=== PATIENT | female | born 1950 | race Caucasian/White ===

== ENCOUNTER 2023-12-25 18:15 | Emergency (ER) | payer OTHER, SELFPAY ==
[2023-12-25 18:18] VITALS: BP 152/66
--- NOTE | 2023-12-25 21:22 | ED.GENMED ---
History of Present Illness
General
Chief Complaint: DVT/Possible Blood Clot
Source: patient
Time Seen by Provider: 12/25/23 18:39
Travel History
Have you had any contact with someone who has COVID-19?: No
Do you have any symptoms of coronavirus? Fever > 100 degrees, chills, cough, shortness of breath, sore throat, loss of taste or smell, muscle aches, or headache?: No
History of Present Illness
History of Present Illness:
73-year-old female presenting to the emergency department for evaluation of some right calf discomfort that started earlier today, contacted her primary care provider who attempted to get the patient an outpatient ultrasound however this was unable
to be done for another month so primary care recommended patient come to the ER to have an ultrasound done. Patient was recently on a long plane ride. She otherwise has no history of DVT. She denies any color changes, numbness, motor dysfunction,
traumatic injuries or any other concerns.
Past History
Past History
ED Past Medical History: Arrthythmia (Atrial fibrillation), Asthma, GERD and Hypercholesterolemia (Diet-controlled)
ED Past Surgical History: Gynecological (Laparoscopy for treatment of endometriosis) and Other (Breast augmentation)
Social History
Tobacco: Non-smoker
Alcohol: None
Drug: None
Personal:
Living: with family
Employment: Employed
Family History
Family History: Negative CAD or Sudden
Review of Systems
Review of Systems
All Other Systems: ROS reviewed and negative except as documented in HPI and ROS
Phy Exam
Physical Exam
Physical Exam:
GENERAL: Alert , in no apparent distress
EYE: conjunctiva clear
Head: Normocephalic atraumatic
NECK: Supple,
ENT: mmm.
LUNGS: no acute respiratory distress
NEUROLOGICAL: Alert and oriented
SKIN: Warm and dry, skin intact.
MUSCULOSKELETAL: well perfused. Easily palpable pedal and tibial pulses bilaterally. Cap refill less than 2 seconds. Sensation grossly intact to light touch.
PSYCH: Normal and appropriate interaction.
Scores
Heart Failure Risk
Heart Failure Risk Score: Not Applicable
Heart Score for Chest Pain Patients
STEMI patient?: Not applicable
Withdrawal Assessment of Alcohol
Withdrawal Assessment Completed?: Not applicable
Course
Orders/Labs/Results
Orders:
Orders
12/25/23 18:21
US Periph Venous LOWER Ext RT Urgent
Comment:
Reason For Exam: right calf pain
Vital Signs
Initial and Last Documented VS:
Initial Vital Signs
Temp Pulse Resp BP Pulse Ox
98.2 F 56 20 152/66 99
12/25/23 18:18 12/25/23 18:18 12/25/23 18:18 12/25/23 18:18 12/25/23 18:18
Last Documented Vital Signs
Temp Pulse Resp BP Pulse Ox
98.2 F 61 20 118/60 98
12/25/23 18:18 12/25/23 21:40 12/25/23 18:18 12/25/23 21:40 12/25/23 19:18
MDM/Problems Addressed
Differential Diagnosis Includes:
Varicose vein, DVT, muscle strain
MDM/Problems Addressed:
73-year-old female presenting to the emergency department for evaluation at the request of primary care provider who was concerned for possible DVT. Patient's risk factor of recent prolonged travel. Ultrasound was ordered from triage and was
ultimately negative for DVT. Suspect strain or varicose vein as possible diagnosis. Compression and elevation recommended. Patient will follow-up with primary care provider
*Radiology
Radiology exam reviewed: radiology read reviewed
*Pulse Oximetry
Patient hypoxic: no
*Critical Care Note
Total Time (30-74mins, 75-104mins- exclusive of procedures): Not Applicable
ED Attending Note
-
Portions of this chart may have been created with voice recognition software.� Occasional wrong word or��sound alike� substitutions may have occurred due to the inherent limitations of voice recognition software.
Discharge Plan
Departure
Patient Disposition: Home (Routine Discharge)
Date of Disposition: 12/25/23
Time of Disposition: :22
Patient with high blood pressure during this ER visit?: Yes
Discharge Problem:
Pain in right lower leg
Instructions: Varicose Veins (DC)
Prescriptions:
No Action
Calcium Citrate Plus 1 EACH tablet
1 ea PO BID
fexofenadine [Shital] 180 mg Tablet
180 mg PO DAILY PRN (Reason: allergies)
multivitamin [Daily Multi-Vitamin] Tablet
1 tab PO DAILY
fluticasone propionate [Flovent HFA] 220 mcg/actuation Hfa Aerosol Inhaler
1 puff INHALATION BID
betaine HCl 300 mg Tablet
See Rx Instructions .ROUTE .COMPLEX
Rx Instructions:
650 mg orally takes with 3 meals a day.
quercetin 500 mg Capsule
500 mg PO DAILY
Boswellia
500 mg PO DAILY
CoQ-10
1 tab PO DAILY
Curcumin
1 dose PO DAILY
[place] 3 Fish Oil
1 tab PO DAILY
Patient Comments:
combo with flax seed 1,000 mg.
Vitamin B-1
1 tab PO DAILY
vitamin D3-vitamin K2
1 tab PO DAILY
Allovera
10 mg PO DAILY
ibuprofen 600 MG tablet
400 mg PO BID PRN (Reason: moderate pain)
Referrals:
Philly Orellana DO [Family Provider] -
Interventions
Interventions:
*Risk Screen - Suicide Last Done: 12/25/23 18:18
*General Assessment Last Done: 12/25/23 18:18
*Neglect/Abuse Screening Last Done: 12/25/23 18:18
*Nursing Disposition Last Done: 12/25/23 21:40
ED- Cardiac Assessment Last Done: 12/25/23 19:18
ED- Pulmonary Assessment Last Done: 12/25/23 19:18
ED-Skin Assessment Last Done: 12/25/23 19:18
Discharge Date and Time
Discharge Date/Time: 12/25/23 21:41
Print Language: ICELANDIC
[2023-12-25 21:40] VITALS: BP 118/60
== END 2023-12-25 21:41 | disposition home or self-care (01) ==
LOC: EMR 18:15
PROVIDERS: EMERGENCY PHYSICIAN Emergency Medicine; FAMILY PHYSICIAN Family Medicine
DX: M79.661 Pain in right lower leg (principal); R03.0 Elevated blood-pressure reading, without diagnosis of hypertension
CPT/HCPCS: 99284; 93971

== ENCOUNTER → 2024-07-27 13:25 | Outpatient (REF) | payer OTHER, SELFPAY | LOC: UCDH 13:25 | PROVIDERS: ATTENDING PHYSICIAN Emergency Medicine; REFERRING PHYSICIAN Student in an Organized Health Care Education/Training Program | DX: R05.3 Chronic cough (principal) | CPT/HCPCS: 71046 ==

== ENCOUNTER → 2024-07-31 10:24 | Outpatient (REF) | payer OTHER, SELFPAY | LOC: WDC 10:24 | PROVIDERS: ATTENDING PHYSICIAN Physician Assistant Medical | DX: Z12.31 Encounter for screening mammogram for malignant neoplasm of breast (principal); Z00.00 Encounter for general adult medical examination without abnormal findings; M81.0 Age-related osteoporosis without current pathological fracture; E78.2 Mixed hyperlipidemia; Z91.09 Other allergy status, other than to drugs and biological substances; J45.20 Mild intermittent asthma, uncomplicated; Z87.891 Personal history of nicotine dependence | CPT/HCPCS: 76770 ==

== ENCOUNTER → 2024-08-07 09:08 | Outpatient (REF) | payer OTHER, SELFPAY | LOC: WDC 09:08 | PROVIDERS: ATTENDING PHYSICIAN Physician Assistant Medical | DX: R92.8 Other abnormal and inconclusive findings on diagnostic imaging of breast (principal) | CPT/HCPCS: 77065 ==

== ENCOUNTER → 2024-08-12 06:57 | Outpatient (REF) | payer OTHER, SELFPAY ==
--- NOTE | 2024-08-12 08:43 | OID.BR.INTR ---
[facility] Navigator - Initial
- -
Date of Contact: 08/12/24
Met with patient. Patient given written information on navigator services available at [facility]. Will follow up as needed per protocol.
== END ==
LOC: WDC 06:57
PROVIDERS: ATTENDING PHYSICIAN Physician Assistant Medical
DX: R92.1 Mammographic calcification found on diagnostic imaging of breast (principal)
CPT/HCPCS: 88305; 19081; 76098; A4648

== ENCOUNTER 2025-01-25 10:11 | Emergency (ER) | payer OTHER, SELFPAY ==
[2025-01-25 10:14] VITALS: BP 157/82
[2025-01-25 10:15] VITALS: BP 157/82
[2025-01-25 11:27] VITALS: BP 148/75
--- NOTE | 2025-01-25 11:34 | ED.GENMED ---
History of Present Illness
General
Chief Complaint: Weakness
Source: patient
Exam Limitations: none
Time Seen by Provider: 01/25/25 11:22
History of Present Illness
History of Present Illness:
74yoF with a history of asthma and allergies presenting for evaluation of malaise. Patient had an episode of dizziness 4 days ago which folic she had to sit down. Her dizziness then resolved but she continues to not feel well. She states her
'head does not feel right' and she has a pressure in the back of her head that 'feels like there is a cloud in there.' She states her eyes are tired and she is having trouble focusing. She had an episode 2 days ago in which she 'could not think
straight' which lasted less than a minute. She denies any further dizziness. She denies any fevers, vomiting, diarrhea, dysuria, chest pain, shortness of breath. She called her PCP today and was told to go to the ED for evaluation.
Past History
Past History
ED Past Medical History: Arrthythmia (Atrial fibrillation), Asthma, GERD and Hypercholesterolemia (Diet-controlled)
ED Past Surgical History: Gynecological (Laparoscopy for treatment of endometriosis) and Other (Breast augmentation)
Social History
Tobacco: Non-smoker
Alcohol: None
Drug: None
Personal:
Living: with family
Employment: Employed
Family History
Family History: Negative CAD or Sudden
Phy Exam
General Physical Exam
General Presentation: well appearing and no apparent distress
General Skin: warm and dry
General Habitus: normal
General Mental: alert
ENT Exam
ENT Exam: TM's normal, pharynx normal, neck supple and normocephalic
Cardiovascular Exam
Cardiovascular Exam: regular rate/rhythm and no edema
Pulmonary Exam
Pulmonary Exam: lungs clear, no respiratory distress, no rales, no crackles, no rhonchi and no wheezing
Neurological Exam
Neurological Exam: alert, oriented x3, CN II-XII intact, no motor deficits, no sensory deficits and speech normal
[place] Coma Scale
Eye Opening: Spontaneous
Verbal Response: Oriented
Motor Response: Obeys Commands
GCS Total Score: 15
Skin Exam
Skin Exam: normal color and warm/dry
Psychiatric Exam
Psychiatric Exam: normal mood/affect
Scores
NIH Stroke Score
Level of Consciousness: 0 - Alert
LOC Questions: 0-Answers both correctly
LOC Commands: 0-Performs both correctly
Best Horizontal Gaze: 0-Normal
Visual [place]: 0=Normal, no visual loss
Facial Palsy: 0=Normal, symmetrical
Motor - Right Arm: 0=No drift 10 seconds
Motor - Left Arm: 0=No drift 10 seconds
Motor - Right Le-No drift 5 seconds
Motor - Left Le-No drift 5 seconds
Limb Ataxia: 0-Absent
Sensation: 0-Normal
Best Language: 0-No aphasia
Dysarthria: 0-Normal
Extinction and Inattention: 0-No abnormality
NIH Total Score:: 0
Course
Orders/Labs/Results
Orders:
Orders
01/25/25 11:33
Electrocardiogram (*1) Urgent
Reason for Study: Vertigo / Dizzy
CT Head W/o Iv Contrast Urgent
Comment:
Reason For Exam: head pressure, dizziness
Cardiac Monitoring- Treatment ONCE
EKG- Treatment ONCE
01/25/25 11:45
COVID-19 Antigen Urgent
Source: Nasal Swab
Complete Blood Count/With Diff Urgent
Comprehensive Metabolic Panel Urgent
TSH Reflex To Free T4 Urgent
Troponin I Urgent
Influenza A+B Rapid Molecular Urgent
RIAN Source: Nasal Swab
Specimen Description:
Abnormal Lab Results
01/25/25
11:45
MCH 31.2 H pg
(27.0-31.0)
Sodium 134 L mmol/L
(135-145)
01/25/25 11:45
01/25/25 11:45
Vital Signs
Initial and Last Documented VS:
Initial Vital Signs
Temp Pulse Resp BP Pulse Ox
97.6 F 71 18 157/82 98
01/25/25 10:14 01/25/25 10:14 01/25/25 10:14 01/25/25 10:14 01/25/25 10:14
Last Documented Vital Signs
Temp Pulse Resp BP Pulse Ox
97.6 F 64 15 135/64 98
01/25/25 10:14 01/25/25 14:30 01/25/25 14:30 01/25/25 14:08 01/25/25 14:30
MDM/Problems Addressed
Differential Diagnosis Includes:
74yoF here with malaise. Had an episode of dizziness a few days ago and has been feeling unwell since. C/o eyes feeling tired and 'head not feeling right' with difficulty concentrating. She is hypertensive with otherwise stable vitals. She is well
appearing in no distress. Neuro exam is non-focal and NIHSS 0. She is A&O. Differential diagnosis includes but is not limited to: dehydration, viral illness, thyroid dysfunction, ACS, less likely but consider CVA
Initial ED plan: Check cardiac labs, TSH, EKG, COVID/flu swab, and CT head.
*Pulse Oximetry
SaO2: 99
Oxygen Mode of Delivery: Room air
Patient hypoxic: no (98%)
*EKG
Interpreted by ED Provider?: Yes
EKG Intrepretation Date: 01/25/25
Heart Rate: 60
Rate: normal
Rhythm: sinus
[place]: normal axis
Interval: normal interval
QRS Pattern: normal QRS
Ischemia: no ischemia
*Critical Care Note
Total Time (30-74mins, 75-104mins- exclusive of procedures): Not Applicable
Update Note
Update Note:
Labs unremarkable including normal glucose, renal function, TSH. EKG shows NSR without ischemic changes and troponin WNL. Viral testing negative. CT head negative for acute findings. No indication for hospitalization. Unclear etiology of symptoms
and patient was advised to f/u closely with her PCP. ED return precautions reviewed. Patient eager to go home and was discharged in stable condition.
ED Attending Note
-
Portions of this chart may have been created with voice recognition software.� Occasional wrong word or��sound alike� substitutions may have occurred due to the inherent limitations of voice recognition software.
Discharge Plan
Departure
Patient Disposition: Home (Routine Discharge)
Date of Disposition: 01/25/25
Time of Disposition: 14:41
Patient with high blood pressure during this ER visit?: Yes
Discharge Problem:
Fatigue
Instructions: Fatigue - ED discharge instructions
Prescriptions:
No Action
Calcium Citrate Plus 1 EACH tablet
1 ea PO BID
fexofenadine [Shital] 180 mg Tablet
180 mg PO DAILY PRN (Reason: allergies)
multivitamin [Daily Multi-Vitamin] Tablet
1 tab PO DAILY
fluticasone propionate [Flovent HFA] 220 mcg/actuation Hfa Aerosol Inhaler
1 puff INHALATION BID
betaine HCl 300 mg Tablet
See Rx Instructions .ROUTE .COMPLEX
Rx Instructions:
650 mg orally takes with 3 meals a day.
quercetin 500 mg Capsule
500 mg PO DAILY
Boswellia
500 mg PO DAILY
CoQ-10
1 tab PO DAILY
Curcumin
1 dose PO DAILY
[place] 3 Fish Oil
1 tab PO DAILY
Patient Comments:
combo with flax seed 1,000 mg.
Vitamin B-1
1 tab PO DAILY
vitamin D3-vitamin K2
1 tab PO DAILY
Allovera
10 mg PO DAILY
ibuprofen 600 MG tablet
400 mg PO BID PRN (Reason: moderate pain)
Referrals:
Brennen Montes PA-C [Family Provider, Family Practice]
Activity Restrictions/Additional Instructions:
Please follow-up with your family doctor in 2 to 3 days. Return to the ER with any new or worsening symptoms.
Interventions
Interventions:
*Risk Screen - Suicide Last Done: 01/25/25 10:51
*General Assessment Last Done: 01/25/25 10:51
*Neglect/Abuse Screening Last Done: 01/25/25 10:51
*ED- Fall Risk Assessment Last Done: 01/25/25 10:51
*ED COVID-19 Vaccine History Last Done: 01/25/25 10:51
*Nursing Disposition Last Done: 01/25/25 14:47
ED- Cardiac Assessment Last Done: 01/25/25 10:52
ED- Neurological Assessment Last Done: 01/25/25 10:52
ED- Pulmonary Assessment Last Done: 01/25/25 10:52
Discharge Date and Time
Discharge Date/Time: 01/25/25 14:48
Print Language: JAPANESE
[2025-01-25 11:54] LABS: % Basophils 0.7 % (0-2); % Immature Granulocytes 0.2 % (0-0.5); % Lymphocytes 33.8 % (20.5-51.1); % Monocytes 8.7 % (1.7-9.3); % Neutrophils 55.6 % (42.2-75.2); Absolute Eosinophils 0.1 10^3/uL (0-0.7); Absolute Monocytes 0.5 10^3/uL (0.1-0.6); Absolute Neutrophils 3.3 10^3/uL (1.4-6.5); Hematocrit 37.6 % (37.0-47.0); Hemoglobin 13.2 g/dL (12.0-16.0); Mean Corp Hgb Conc. 35.1 g/dL (33.0-37.0); Mean Corpuscular Hgb 31.2 pg (27.0-31.0); Mean Corpuscular Volume 88.9 fL (81.0-99.0); Nucleated Red Blood Cells % 0 %; Platelet Count 233 10^3/uL (130-400); Red Blood Cell Count 4.23 10^6/uL (4.20-5.40); Red Cell Dist. Width 13.9 % (11.5-14.5)
[2025-01-25 12:00] VITALS: BP 149/71
[2025-01-25 12:17] LABS: Troponin I < 0.012 ng/ml
[2025-01-25 12:18] LABS: COVID-19 Antigen Negative (Negative)
[2025-01-25 13:02] VITALS: BP 132/64
[2025-01-25 14:08] VITALS: BP 135/64
[2025-01-25 14:21] LABS: ALT (SGPT) 18 U/L (0-35); AST (SGOT) 26 U/L (14-36); Albumin 4.6 g/dl (3.5-5.0); Alkaline Phosphatase 54 U/L (38-126); Blood Urea Nitrogen 13 mg/dl (7-17); Calcium 8.9 mg/dl (8.4-10.2); Carbon Dioxide 24 mmol/L (22-30); Chloride 101 mmol/L (98-107); Glucose 88 mg/dl (70-99); Potassium 4.5 mmol/L (3.5-5.1); Sodium 134 mmol/L (135-145); Total Bilirubin 0.6 mg/dl (0.2-1.3); eGFR > 60.00
== END 2025-01-25 14:48 | disposition home or self-care (01) ==
LOC: EMR 10:11
PROVIDERS: Physician Assistant; EMERGENCY PHYSICIAN Student in an Organized Health Care Education/Training Program; FAMILY PHYSICIAN Physician Assistant Medical
DX: R53.83 Other fatigue (principal); J45.909 Unspecified asthma, uncomplicated; M79.10 Myalgia, unspecified site; E78.00 Pure hypercholesterolemia, unspecified; I48.91 Unspecified atrial fibrillation
CPT/HCPCS: 99284; 70450; 80053; 84443; 84484; 85025; 87502; 87811; 93005

== ENCOUNTER → 2025-03-06 10:43 | Outpatient (REF) | payer OTHER, SELFPAY | LOC: PAVMRI 10:43 | PROVIDERS: ATTENDING PHYSICIAN Physician Assistant Medical | DX: R51.9 Headache, unspecified (principal) | CPT/HCPCS: 70551 ==

== ENCOUNTER → 2025-03-19 10:45 | Outpatient (REF) | payer OTHER, SELFPAY | LOC: HWRAD 10:45 | PROVIDERS: ATTENDING PHYSICIAN Physician Assistant Medical | DX: R42 Dizziness and giddiness (principal); R51.9 Headache, unspecified; M54.2 Cervicalgia | CPT/HCPCS: 72052; 93880 ==